=== PATIENT | female | born 1960 | race Caucasian/White ===

== ENCOUNTER → 2024-08-06 18:10 | Outpatient (REF) | payer MEDICARE, OTHER, SELFPAY | LOC: WDC 18:10 | PROVIDERS: ATTENDING PHYSICIAN Obstetrics & Gynecology; FAMILY PHYSICIAN Internal Medicine | DX: Z12.31 Encounter for screening mammogram for malignant neoplasm of breast (principal) | CPT/HCPCS: 77063; 77067 ==

== ENCOUNTER → 2024-10-17 13:45 | Outpatient (REF) | payer MEDICARE, OTHER, SELFPAY | LOC: RAD 13:45 | PROVIDERS: ATTENDING PHYSICIAN Internal Medicine | DX: Z00.00 Encounter for general adult medical examination without abnormal findings (principal); E78.5 Hyperlipidemia, unspecified | CPT/HCPCS: 75571 ==

== ENCOUNTER 2024-10-31 10:27 | Emergency (ER) | payer SELFPAY ==
[2024-10-31 10:29] VITALS: BP 138/84
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
[2024-10-31 13:58] VITALS: BP 147/85
== END 2024-10-31 14:00 | disposition home or self-care (01) ==
LOC: EMR 10:27
PROVIDERS: EMERGENCY PHYSICIAN Emergency Medicine; FAMILY PHYSICIAN Internal Medicine
DX: S06.0X0A Concussion without loss of consciousness, initial encounter (principal); R51.9 Headache, unspecified; M54.2 Cervicalgia; V48.4XXA Person boarding or alighting a car injured in noncollision transport accident, initial encounter; R01.1 Cardiac murmur, unspecified; M50.30 Other cervical disc degeneration, unspecified cervical region; Z85.828 Personal history of other malignant neoplasm of skin
CPT/HCPCS: 99284; 70450; 72125

== ENCOUNTER → 2025-01-31 08:48 | Outpatient (REF) | payer MEDICARE, OTHER, SELFPAY | LOC: HWRAD 08:48 | PROVIDERS: ATTENDING PHYSICIAN Internal Medicine; FAMILY PHYSICIAN Internal Medicine | DX: M81.0 Age-related osteoporosis without current pathological fracture (principal) | CPT/HCPCS: 77080 ==